=== PATIENT | female | born 1990 | race Caucasian/White ===

== ENCOUNTER 2017-09-08 23:13 | Emergency (ER) | payer OTHER ==
[~2017-09-08] VITALS: Ht 167.6 cm; Wt 54.4 kg
[~2017-09-08 23:13] MED LIST: ADVAIR 100-501 EACH INH; ALBUTEROL2.5 MG/3 M INH/SOL; MEDROL4 M2 PO; PREDNISONE 20MG20 MG PO; PROAIR HFA0.09 MG/Ac PO; PROAIR HFA8.5 GM INH; nebulizer machine
--- NOTE | 2017-09-09 01:17 | ED GENERAL ADULT ---
History of Present Illness General Chief Complaint: Seizure Stated Complaint: SEZUIRE Source: patient Exam Limitations: no limitations Vital Signs & Intake/Output Vital Signs & Intake/Output Vital Signs Date Time Temp Pulse Resp B/P B/P Pulse O2 O2 Flow FiO2 Mean Ox Delivery Rate 09/09 0107 100 Room Air 09/09 0027 97.8 74 18 127/74 96 Allergies Coded Allergies: diphenhydramine (UNKNOWN 09/07/17) Reconcile Medications Albuterol Sulfate (Proair Hfa) 90 MCG HFA.AER.AD 2 PUF INH Q4-6 PRN PRN copugh /wheezing Triage Nurses Notes Reviewed? yes Onset: Abrupt Duration: minute(s): Timing: single episode today Injury Environment: home Severity: moderate Modifying Factors: Improves With: rest. Associated Symptoms: loss of bladder : No Patient currently breastfeeds: No HPI: 27 yo woman h/o seizure disorder, last seizure in 2015, presents with a brief seizure-like episode that lasted approximately 1 minute. Per boyfriend, "She was confused afterwards for a few minutes, but then she was fine.... It took me about 45 minutes to convince her to come to the emergency room." Per boyfriend, she hit her head after she fell. She denies alcohol and drug use. She notes no inciting events. She is presently feeling better. Past History Travel History Traveled to [place] past 21 day No Medical History Any Pertinent Medical History? 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 No Review of Systems Review of Systems Constitutional: Reports: no symptoms. EENTM: Reports: no symptoms. Respiratory: Reports: no symptoms. Cardiovascular: Reports: no symptoms. GI: Reports: no symptoms. Genitourinary: Reports: no symptoms. Musculoskeletal: Reports: no symptoms. Skin: Reports: no symptoms. Neurological/Psychological: Reports: no symptoms. Hematologic/Endocrine: Reports: no symptoms. Immunologic/Allergic: Reports: no symptoms. All Other Systems: Reviewed and Negative Physical Exam Physical Exam General Appearance: well developed/nourished, no apparent distress, alert Head: 3cm hematoma at occiput Eyes: Bilateral: normal appearance, PERRL, EOMI. Ears, Nose, Throat: normal pharynx, normal ENT inspection Neck: normal inspection, supple, full range of motion Respiratory: normal breath sounds, chest non-tender, no respiratory distress, quiet respiration, lungs clear Cardiovascular: regular rate/rhythm Gastrointestinal: normal bowel sounds, soft, non-tender, no organomegaly Back: normal inspection, normal range of motion Extremities: normal inspection, normal capillary refill, normal range of motion, no edema Neurologic/Psych: no motor/sensory deficits, awake, alert, oriented x 3 Skin: intact, normal color, warm/dry Core Measures ACS in differential dx? No CVA/TIA Diagnosis: No Sepsis Present: No Sepsis Focused Exam Completed? No Progress Differential Diagnoses I considered the following diagnoses in my evaluation of the patient: seizure vs pseudoseizure vs other. Plan of Care: Orders Procedure Date/time Status Add-on Test (ER Only) 09/09 0245 Active HUMAN BETA HCG SCREEN 09/09 0105 Complete URINE DRUG SCREEN FOR ER ONLY 09/09 0020 Active EKG 09/09 0020 Active PROLACTIN 09/09 0001 Complete URINALYSIS 09/08 235 Active COMPREHENSIVE METABOLIC PANEL 09/08 235 Complete CBC WITHOUT DIFFERENTIAL 09/08 235 Complete Laboratory Tests 09/09/17 0105: Prolactin 8.1 09/09/17 0105: Anion Gap 15, Estimated GFR > 60, BUN/Creatinine Ratio 18.6, Glucose 121 H, Calcium 9.8, Total Bilirubin 0.8, AST 24, ALT 21, Alkaline Phosphatase 70, Total Protein 7.7, Albumin 4.9, Globulin 2.8, Albumin/Globulin Ratio 1.8, Total Beta HCG NEGATIVE, CBC w Diff NO MAN DIFF REQ, RBC 4.57, MCV 87.1, MCH 29.8, MCHC 34.1, RDW 14.0, MPV 7.6, Gran % 55.9, Lymphocytes % 32.2, Monocytes % 6.2, Eosinophils % 5.6 H, Basophils % 0.1, Absolute Granulocytes 4.2, Absolute Lymphocytes 2.4, Absolute Monocytes 0.5, Absolute Eosinophils 0.4, Absolute Basophils 0 Diagnostic Imaging: Viewed by Me: CT Scan. Discussed w/RAD: CT Scan. Radiology Impression: PATIENT: RAMILA JERRY PRESENT AGE: 27 PATIENT ACCOUNT NO: [id number] : 92 LOCATION: [facility] ORDERING PHYSICIAN: Shyam Cordero MD SERVICE DATE: 09/09/17 EXAM TYPE: CAT - CT HEAD WO IV CONTRAST EXAMINATION: CT HEAD WITHOUT CONTRAST CLINICAL INFORMATION: Seizure. COMPARISON: 05/27/2015 TECHNIQUE: Contiguous axial imaging was performed from the skull base to vertex without intravenous contrast. DLP: 603 mGy-cm. FINDINGS: There is no evidence of acute intracranial hemorrhage or territorial infarction. No abnormal mass effect or midline shift is seen. Rainey to white matter differentiation is well preserved. No extra-axial fluid collections are identified. No hydrocephalus. No significant volume loss. There is no abnormal attenuation within the brain parenchyma. The osseous structures and soft tissues are normal. The mastoid air cells are well aerated. There is moderate opacification of the maxillary sinuses. Mild opacification of the ethmoid air cells. IMPRESSION: No acute intracranial pathology. Moderate opacification of the maxillary sinuses. DICTATED BY: Elvin Carrion MD DATE/ TIME DICTATED:09/09/17326 INFORMATION AND DATA ARCHITECT ANALYST:MARY CARMEN DATE/TIME TRANSCRIBED: 09/09/17326 CONFIDENTIAL, DO NOT COPY WITHOUT APPROPRIATE AUTHORIZATION. < Electronically signed in Other Vendor System> SIGNED BY: Elvin Carrion MD 09/09/17 0332 Initial ED EKG: sinus rhythm, no acute changes. irregular rate Departure Departure Disposition: HOME OR SELF CARE Condition: Stable Clinical Impression Primary Impression: Seizure-like activity Referrals: Patient Has No Primary Care Dr (PCP/Family) Departure Forms: Customer Survey General Discharge Information Comments 09/09/17, 3:54am... pt resting comfortably, benign labs... pt instructed not to drive, swim, use dangerous machinery, climb in high places, and other precautions. pt instructed to follow up with neurologist. close follow up advised. Critical Care Note Critical Care Note Critical Care Time: non-applicable
[2017-09-09 01:44] LABS: ABSOLUTE BASOPHIL COUNT 0 /CUMM (0.0-0.2); ABSOLUTE EOSINOPHIL COUNT 0.4 /CUMM (0.0-0.7); ABSOLUTE GRANULOCYTE CT 4.2 /CUMM (1.4-6.5); ABSOLUTE LYMPH COUNT 2.4 /CUMM (1.2-3.4); ABSOLUTE MONOCYTE COUNT 0.5 /CUMM (0.10-0.60); BASOPHIL % 0.1 % (0.0-2.0); EOSINOPHIL % 5.6 % (0-5); GRANULOCYTE % 55.9 % (42.2-75.2); HEMATOCRIT 39.8 % (37-47); MEAN CORPUSCULAR HGB 29.8 PG (27.0-31.0); MEAN CORPUSCULAR HGB CONC 34.1 G/DL (33.0-37.0); MEAN CORPUSCULAR VOLUME 87.1 FL (81.0-99.0); MEAN PLATELET VOLUME 7.6 FL (7.4-10.4); PLATELET COUNT 230 /CUMM (130-400); RED BLOOD CELL CT 4.57 /CUMM (4.20-5.40); WHITE BLOOD CELL COUNT 7.4 /CUMM (4.8-10.8)
[2017-09-09 03:12] VITALS: BP 121/72
--- NOTE | 2017-09-09 03:32 | CT SCAN REPORT ---
EXAMINATION: CT HEAD WITHOUT CONTRAST CLINICAL INFORMATION: Seizure. COMPARISON: 05/27/2015 TECHNIQUE: Contiguous axial imaging was performed from the skull base to vertex without intravenous contrast. DLP: 603 mGy-cm. FINDINGS: There is no evidence of acute intracranial hemorrhage or territorial infarction. No abnormal mass effect or midline shift is seen. Rainey to white matter differentiation is well preserved. No extra-axial fluid collections are identified. No hydrocephalus. No significant volume loss. There is no abnormal attenuation within the brain parenchyma. The osseous structures and soft tissues are normal. The mastoid air cells are well aerated. There is moderate opacification of the maxillary sinuses. Mild opacification of the ethmoid air cells. IMPRESSION: No acute intracranial pathology. Moderate opacification of the maxillary sinuses.
== END 2017-09-09 04:00 ==
LOC: ERH 23:13
PROVIDERS: Physician Assistant Medical
DX: R56.9 Unspecified convulsions (principal)
CPT/HCPCS: 80307; 81025; 93005; 93010

== ENCOUNTER 2017-12-11 14:59 | Inpatient (IN) | payer OTHER ==
[~2017-12-11] VITALS: Ht 160 cm; Wt 60.3 kg
--- NOTE | 2017-12-11 15:10 | ED AMS/SEIZURE/WEAK/DIZZY ---
History of Present Illness General Chief Complaint: General Adult Stated Complaint: OVERDOSE Source: patient Exam Limitations: no limitations Vital Signs & Intake/Output Vital Signs & Intake/Output Vital Signs Date Time Temp Pulse Resp B/P B/P Pulse O2 O2 Flow FiO2 Mean Ox Delivery Rate 12/12 1611 99 Nasal 4.0L Cannula 12/12 1600 99.0 86 22 124/58 98 Nasal 4.0L Cannula 12/12 1200 96 Nasal 2.0L Cannula 12/12 1145 100 Nasal 40% Cannula 12/12 0920 100 Nasal 60% Cannula 12/12 0830 100 Nasal 70% Cannula 12/12 0800 100 Nasal 60% Cannula 12/12 0800 99.2 87 20 120/78 100 Nasal 60% Cannula 12/12 0400 100 Nasal 70% Cannula 12/12 0028 100 Nasal 70% Cannula 12/12 0000 98 Nasal 70% Cannula 12/12 0000 98.5 97 30 130/72 99 Nasal 70% Cannula 12/11 2247 Nasal 70% Cannula 12/11 2130 97 Nasal 70% Cannula 12/11 2122 99 Nasal 70% Cannula 12/11 2045 98.7 84 32 146/65 100 Nasal Cannula 12/11 1945 99.6 89 26 125/74 98 Nasal Cannula 12/11 1842 86 112/68 92 Nasal Cannula 12/11 1830 94 Nasal 80% Cannula 12/11 1803 98.6 79 31 104/60 90 Nasal 60% Cannula ED Intake and Output 12/12 0000 12/11 1200 Intake Total 1600 Output Total 600 Balance 1000 Intake, IV 1600 Output, Urine 600 Patient 133 lb Weight Weight Bed scale Measurement Method Allergies Coded Allergies: diphenhydramine (UNKNOWN 09/07/17) Reconcile Medications Albuterol Sulfate (Proair Hfa) 90 MCG HFA.AER.AD 2 PUF INH Q4-6 PRN PRN copugh /wheezing Triage Nurses Notes Reviewed? yes HPI: Patient presents for possible overdose. Patient was noted to be lethargic and poorly responsive by family. Patient herself is unable to provide history. Past History Travel History Traveled to [place] past 21 day No Medical History Any Pertinent Medical History? 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 No (UNOBTAINABLE) Review of Systems Review of Systems Constitutional: Reports: see HPI. Comments PT UNABLE TO PROVIDE Physical Exam Physical Exam General Appearance: see below Comments: Gen.: Well-nourished, well-developed, agonal respirations, unresponsive, blackwell color Head: Normocephalic, atraumatic. Eyes: Normal inspection bilaterally Ears: Normal inspection bilaterally Nose: Normal inspection Throat/mouth : Moist mucosa Neck: no goiter Heart: Regular rate and rhythm, no murmurs rubs or gallops Lungs: Agonal respirations, poor respiratory effort, decreased breath sounds bilaterally Chest: Poor chest excursion Abdomen: Nondistended Extremities: equal radial pulses, no spontaneous movements Neurologic: Unable to assess Skin: warm and dry Psychiatric: Unable to assess Core Measures ACS in differential dx? No CVA/TIA Diagnosis No Sepsis Present: No Sepsis Focused Exam Completed? No Progress Differential Diagnosis: drug overdose, alcohol overdose, metabolic abnormality, hypoxia, trauma Plan of Care: Orders Procedure Date/time Status Regular Diet 12/12 B Active TROPONIN LEVEL 12/12 1112 Complete EKG 12/12 1112 Active THERAPIST ORDERS 12/12 0920 Complete OXYGEN SETUP (GEN) 12/12 0920 Complete THERAPIST ORDERS 12/12 0830 Complete OXYGEN SETUP (GEN) 12/12 0830 Complete CBC WITHOUT DIFFERENTIAL 12/12 0600 Complete EKG 12/12 0242 Active THERAPIST ORDERS 12/12 UNK Complete OXYGEN SETUP (GEN) 12/12 UNK Complete ICU LAB BUNDLE 12/12 UNK Complete RT: Evaluation 12/11 2246 Active Wound Care/Dressing 12/11 2201 Complete Weight 12/11 2201 Active VTE Mechanical Prophylaxis 12/11 2201 Active Vital Signs 12/11 2201 Active Turn and Reposition 12/11 2201 Active Drains/Tubes 12/11 2201 Complete Teach/Educate 12/11 2201 Active Skin Integrity Protocol 12/11 2201 Active Skin/Pressure Ulcer Assess (Sk 12/11 2201 Active Precautions 12/11 2201 Active Pain Treatment and Response 12/11 2201 Active Nutritional Intake, Monitor 12/11 2201 Active Isolation 12/11 2201 Active CIWA 12/11 2201 Complete Patient Care Conference 12/11 2201 Active Activity/Ambulation 12/11 2201 Active EKG 12/11 2152 Active OXYGEN SETUP (GEN) 12/11 2129 Complete VRE ACTIVE SURVIELLANCE 12/11 2128 Active ACTIVE SURVEILLANCE NARES 12/11 2128 Active LACTIC ACID 12/11 2026 Complete CULTURE,URINE 12/12 2015 Active BLOOD CULTURE 12/12 2015 Active TRC EVALUATION (GEN) 12/11 1941 Complete Pathway - chart 12/11 1941 Active House Staff 12/11 1941 Active Code Status 12/11 1941 Active Patient Data 12/11 1855 Active ARTERIAL BLOOD GAS (GEN) 12/11 1843 Complete Admit to inpatient 12/11 1823 Active THERAPIST ORDERS 12/11 1821 Complete OXYGEN SETUP (GEN) 12/11 1821 Complete OXYGEN SETUP (GEN) 12/11 1734 Complete OXYGEN SETUP (GEN) 12/11 1713 Complete Intake & Output 12/11 1617 Active THERAPIST ORDERS 12/11 UNK Complete AEROSOL (GEN) 12/11 UNK Complete VTE Mechanical Prophylaxis 12/11 UNK Active [place] Coma Scale 12/11 UNK Active Current Medications Sig/Dana Start time Last Medication Dose Stop Time Status Admin Enoxaparin Sodium 40 MG DAILY 12/12 0900 AC 12/12 (Lovenox) 0831 Albuterol Sulfate 3 ML EVERY 4 HRS/AWAKE 12/12 0800 AC 12/12 (Proventil) 1611 Ampicillin Sodium/ 3,000 MG Q6H 12/11 2100 AC 12/12 Sulbactam Sodium 1511 (Unasyn) Sodium Chloride 100 ML (Normal Saline 0.9%) Ondansetron HCl 4 MG Q6P PRN 12/11 2044 AC (Zofran) Acetaminophen 650 MG Q6P PRN 12/11 1944 AC (Tylenol) Laboratory Tests 12/12/17 1158: Troponin I 0.01 12/12/17 0344: Anion Gap 11, Estimated GFR > 60, Glucose 127 H, Calcium 8.2 L, Phosphorus 3.1 , Magnesium 1.6, Total Bilirubin 0.4, AST 44 H, ALT 49, Albumin 3.2 L, CBC w Diff MAN DIFF ORDERED, RBC 4.20, MCV 87.6, MCH 30.0, MCHC 34.2, RDW 13.1, MPV 7.0 L, Gran % 94.9 H, Lymphocytes % 2.5 L, Monocytes % 2.6, Eosinophils % 0, Basophils % 0, Absolute Granulocytes 14.3 H, Segmented Neutrophils 81 H, Band Neutrophils 13 H, Absolute Lymphocytes 0.4 L, Lymphocytes 3 L, Monocytes 2, Absolute Monocytes 0.4, Absolute Eosinophils 0, Absolute Basophils 0, Metamyelocytes 1, Platelet Estimate ADEQUATE, Normocytic RBCs VERIFIED, Normochromic RBCs VERIFIED 12/11/172144: pH 7.35, pCO2 43, pO2 71 L, HCO3 23, ABG O2 Sat (Measured) 93.0 L, Carboxyhemoglobin 1.2 L, O2 Concentration % 70%, Temperature 98.5, O2 Delivery Method NC, Phlebotomy Draw Site RIGHT RADIAL 12/11/172019: Lactic Acid 0.6 L 12/11/171942: Urine Opiates Screen 372, Methadone Screen < 40, Barbiturate Screen < 60, Ur Phencyclidine Scrn < 6.00, Amphetamines Screen < 100, U Benzodiazepines Scrn < 85, Urine Cocaine Screen > 1000 H, Urine Cannabis Screen 69.80 H Microbiology 12/12 645 URINE ROUT: Urine Culture - RECD 12/11 2134 UPPER RESP: Surveillance Culture - RECD 12/11 2134 GI: Surveillance Culture - RECD 12/11 2037 BLOOD: Blood Culture - RES 12/12 2019 BLOOD: Blood Culture - RES Diagnostic Imaging: Discussed w/RAD: Radiology Read. CXR Impression: no acute abnormality Initial ED EKG: NSR, rate (80), no ST T wave changes Comments: 12/11/2017 3:28:19 PM despite patient's initial substantial improvement with Narcan, she is currently hypoxic with an oxygen saturation in the low 80s with a high flow nasal cannula in place. The respiratory therapists are at bedside arranging for a nebulizer treatment given bronchospasm heard on lung examination. The patient is lethargic but able to sit up and attempts to answer questions. Respiratory effort is adequate at this time. 12/11/2017 3:38:00 PM Rose appears to be increasingly lethargic. Additional Narcan will be administered. Respiratory therapist is attempting to give a nebulizer treatment but is having difficulty given the lack of cooperation of the patient. 12/11/2017 3:58:21 PM with a second dose of Narcan, Rose is awake alert and answering questions. She has no recall of what occurred prior to arrival but admits to heroin abuse. She denies any other co-intoxicants. Departure Departure Disposition: STILL A PATIENT Condition: Stable Clinical Impression Primary Impression: Heroin overdose Referrals: Patient Has No Primary Care Dr (PCP/Family) Departure Forms: Customer Survey General Discharge Information Admission Note Spoke With: Leonardo Croft MD Documentation of Exam: Documentation of any treatments & extenuating circumstances including Concerns Regarding Discharge (functional status, medication knowledge or non-compliance, living conditions, etc.) that warrant an admission rather than observation: Patient presented after a near fatal heroin overdose. She currently requires continuous IV infusion of Narcan to maintain an appropriate level of alertness and oxygen saturations. Even with this this patient is requiring relatively high flow oxygen to maintain oxygen saturations. She cannot be safely treated as an outpatient at this point attempted outpatient treatment would almost certainly be fatal. The patient requires ICU level care with a continuous infusion of Narcan" clinical monitoring of vital signs and oxygen saturation along with clinical condition. Patient should be evaluated by inpatient psychiatry for the possibility of an intentional overdose. As this patient metabolizes the her when and other intoxicants in her system her oxygen and Narcan should be weaned as tolerated clinically. I believe counseling to address this patient's opiate abuse should be initiated while in the hospital. I feel this patient will require a multiple day hospitalization. Critical Care Note Critical Care Note Critical Care Time: 30-74 min
--- NOTE | 2017-12-11 15:32 | RADIOLOGY REPORT ---
EXAMINATION: XR PORTABLE CHEST CLINICAL INFORMATION: Overdose COMPARISON: 11/03/2013 TECHNIQUE: Portable frontal view of the chest was obtained. FINDINGS: No significant abnormality is noted involving the heart, lungs, mediastinum, bony thorax or soft tissues. IMPRESSION: No acute pulmonary disease. No significant change from prior study.
[2017-12-11 17:06] LABS: ABSOLUTE BASOPHIL COUNT 0 /CUMM (0.0-0.2); ABSOLUTE EOSINOPHIL COUNT 0.1 /CUMM (0.0-0.7); ABSOLUTE GRANULOCYTE CT 15.3 /CUMM (1.4-6.5); ABSOLUTE LYMPH COUNT 0.7 /CUMM (1.2-3.4); ABSOLUTE MONOCYTE COUNT 0.3 /CUMM (0.10-0.60); BASOPHIL % 0.2 % (0.0-2.0); EOSINOPHIL % 0.6 % (0-5); HEMATOCRIT 39.6 % (37-47); MEAN CORPUSCULAR HGB 30.4 PG (27.0-31.0); MEAN CORPUSCULAR HGB CONC 34.3 G/DL (33.0-37.0); MEAN CORPUSCULAR VOLUME 88.6 FL (81.0-99.0); MEAN PLATELET VOLUME 6.8 FL (7.4-10.4); PLATELET COUNT 215 /CUMM (130-400); RBC DISTRIBUTION WIDTH 13.1 % (11.5-14.5); RED BLOOD CELL CT 4.47 /CUMM (4.20-5.40); WHITE BLOOD CELL COUNT 16.4 /CUMM (4.8-10.8)
--- NOTE | 2017-12-11 19:01 | History & Physical ---
[facility] 12/11/17 334: General Information and HPI MD Statement: I have seen and personally examined RAMILA JERRY and documented this H&P. The patient is a 27 year old F who presented with a patient stated chief complaint of [unresponsiveness]. Source of Information: patient, ER data Exam Limitations: unable to give history, clinical condition History of Present Illness: 27 yo F with PMH of asthma was brought to the ED by a friend for unresponsiveness. History is limited and obtained from ER data. The patient was reportedly found to be unresponsive and diaphoretic earlier in the car. On arrival to the ED, there was vomitus noticed on her clothes. She was given a dose of Narcan to which she responded but became unresponsive again. She received 2 more doses of Narcan after which she was subsequently started on a Narcan drip. The patient was noticed to cough bloody/frothy sputum in the ER. The patient is arousable with deep sternal rub but has a waxing and waning course of consciousness. During a brief period where she was awake, she reports to have snorted 3 bags of heroin earlier today. She has been using 2 bags of heroin every day for the past year. Denies IV drug use. Occasional use of alcohol. Limited ROS was obtained; she does not complain of any pain/discomfort or offers any complaints. The patient was last seen twice in the ER on September 07 and of this year where she presented once for asthma and for a ? episode of seizure. 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 EENTM: Reports: no symptoms. Cardiovascular: Denies: chest pain. Respiratory: Reports: no symptoms. GI: Reports: no symptoms. Genitourinary: Reports: no symptoms. Musculoskeletal: Reports: no symptoms. Skin: Reports: no symptoms. Neurological/Psychological: Reports: no symptoms. Exam & Diagnostic Data Last 24 Hrs of Vital Signs/I&O Vital Signs Date Time Temp Pulse Resp B/P B/P Pulse O2 O2 Flow FiO2 Mean Ox Delivery Rate 12/11 1803 98.6 79 31 104/60 90 Nasal 60% Cannula 12/11 1747 92 Nasal 100% Cannula 12/11 1716 96.8 82 34 113/63 98 Nasal 60% Cannula 12/11 1610 99 Nasal 80% Cannula 12/11 1559 96.6 12/11 1553 94.9 95 18 127/70 98 Nasal 100% Cannula 12/11 1520 94 Nasal 100% Cannula 12/11 1514 98.6 99 30 154/106 74 Nasal 6.0L Cannula Intake & Output 12/11 1600 12/11 0800 12/11 0000 Intake Total Output Total Balance Patient 110 lb Weight Weight Estimated Measurement Method Physical Exam General Appearance Cooperative, Mild Distress, lethargic, difficult to arouse even with deep sternal rub Skin No Rashes, No Breakdown Skin Temp/Moisture Exam: Warm/Dry Sepsis Skin Exam (color): Normal for Ethnicity HEENT Atraumatic, PERRLA, Mucous Membr. moist/pink Cardiovascular Normal S1, Normal S2, No Murmurs Lungs diffuse rhonchi Abdomen Soft, No Tenderness Neurological Normal Speech, Strength at 5/5 X4 Ext Extremities No Edema, Normal Pulses Last 24 Hrs of Labs/Mateo: Laboratory Tests 12/11/17 1943: Methadone Screen Pending, Barbiturate Screen Pending, Ur Phencyclidine Scrn Pending, Amphetamines Screen Pending, U Benzodiazepines Scrn Pending, Urine Cocaine Screen Pending, Urine Cannabis Screen Pending 12/11/17 1644: Anion Gap 10, Estimated GFR > 60, BUN/Creatinine Ratio 12.5, Glucose 120 H, Calcium 8.1 L, Total Bilirubin 0.4, AST 89 H, ALT 53 H, Alkaline Phosphatase 52, Troponin I 0.02, Total Protein 5.9 L, Albumin 3.4 L, Globulin 2.5, Albumin /Globulin Ratio 1.4, Total Beta HCG NEGATIVE, CBC w Diff MAN DIFF ORDERED, RBC 4.47, MCV 88.6, MCH 30.4, MCHC 34.3, RDW 13.1, MPV 6.8 L, Gran % 93.0 H, Lymphocytes % 4.3 L, Monocytes % 1.9, Eosinophils % 0.6, Basophils % 0.2, Absolute Granulocytes 15.3 H, Segmented Neutrophils Pending, Absolute Lymphocytes 0.7 L, Absolute Monocytes 0.3, Absolute Eosinophils 0.1, Absolute Basophils 0, Serum Alcohol < 10.0 12/11/17 1506: Total Beta HCG Cancelled Microbiology 12/12 2015 URINE ROUT: Urine Culture - ORD 12/12 2015 BLOOD: Blood Culture - ORD 12/12 2015 BLOOD: Blood Culture - ORD Assessment/Plan Assessment: 27 yo F with PMH of asthma is brought to the ED after being found unresponsive. Likely etiology at this time appears to be heroin overdose. On arrival to the ED she had a temp of 98.6, Pulse 99, RR 30 and BP of 154/106. Labs show white count of 16.4 with 93% granulocytes, H&H of 13.6/39, Platelets of 215. Serum chemistries show Na 137, K 4.4, BUN 10, Cr 0.8, AST 89, ALT 53, serum alcohol < 10. In the ED she received IV Narcan 0.4mg x 3, 1L of NS, nebs with albuterol and started on IV Narcan drip. Assessment: 1. Acute Heroin Overdose 2. Aspiration Pneumonia 3. Cocaine Abuse 4. History of Asthma Plan: * Admit patient to ICU. * Continue Narcan drip for now. Will attempt to wean off once her level of consciousness improves. * TRC/nebs as needed. She is currently on 60% high flow NC and received an albuterol treatment in the ER. * Obtain blood and urine culture * Utox - positive for cocaine and cannabis. * Check Lactic Acid * Start IV Unasyn 3g q6 to cover for possible aspiration pneumonia. She does have a white count but this could be reactive. * Await CT Chest results. * IV hydration with D5-1/2 NS @75ml/hr * IV Zofran prn for nausea * Diet: NPO for now * DVT Prophylaxis: SC Lovenox * Code Status: Full Code. This needs to be confirmed when the patient is more awake/alert. Her only contact listed in the chart is a male friend who was contacted but his phone is off. As Ranked By This Provider Problem List: 1. Overdose Core Measures/Misc (02/15) Acute Coronary Syndrome ACS Diagnosis: No Congestive Heart Failure Congestive Heart Failure Diagnosis No Cerebrovascular Accident CVA/TIA Diagnosis: No VTE (View Protocol) VTE Risk Factors Age>40 No Mechanical VTE Prophylaxis d/t N/A MechProphylax Ordered No VTE Pharm Prophylaxis d/t NA PharmProphylax ordered Sepsis (View protocol) Sepsis Present: No If YES complete Sepsis Event Note If YES complete Sepsis Event Note Leonardo Croft MD 12/12/17 0014: General Information and HPI Statement: I have seen and personally examined RAMILA JERRY and documented this H&P. The patient is a 27 year old F who presented with a patient stated chief complaint of [unresponsiveness]. Source of Information: ER data Exam Limitations: not alert/orientated, confusion Allergies/Medications Allergies: Coded Allergies: diphenhydramine (UNKNOWN 09/07/17) Home Med list Albuterol Sulfate (Proair Hfa) 90 MCG HFA.AER.AD 2 PUF INH Q4-6 PRN PRN copugh /wheezing Past History Medical History Neurological: seizure Respiratory: asthma Past Family/Social History Psychosocial History Smoking Status: Never Smoked ETOH Use: occasional use Illicit Drug Use: cocaine, heroin, marijuana Employment History Past Employment History Unobtainable at this time Review of Systems Review of Systems Constitutional: Reports: see HPI. Exam & Diagnostic Data Last 24 Hrs of Vital Signs/I&O Vital Signs Date Time Temp Pulse Resp B/P B/P Pulse O2 O2 Flow FiO2 Mean Ox Delivery Rate 12/12 0000 98.5 97 30 130/72 99 Nasal 70% Cannula 12/11 2246 Nasal 70% Cannula 12/11 2129 97 Nasal 70% Cannula 12/11 2121 99 Nasal 70% Cannula 12/11 2044 98.7 84 32 146/65 100 Nasal Cannula 12/11 1945 99.6 89 26 125/74 98 Nasal Cannula 12/11 1842 86 112/68 92 Nasal Cannula 12/11 1830 94 Nasal 80% Cannula 12/11 1803 98.6 79 31 104/60 90 Nasal 60% Cannula 12/11 1747 92 Nasal 100% Cannula 12/11 1716 96.8 82 34 113/63 98 Nasal 60% Cannula 12/11 1642 76 108/55 92 Nasal Cannula 12/11 1610 99 Nasal 80% Cannula 12/11 1559 96.6 12/11 1553 94.9 95 18 127/70 98 Nasal 100% Cannula 12/11 1520 94 Nasal 100% Cannula 12/11 1514 98.6 99 30 154/106 74 Nasal 6.0L Cannula Intake & Output 12/12 0800 12/12 0000 12/11 1600 Intake Total 1600 Output Total 600 Balance 1000 Intake, IV 1600 Output, Urine 600 Patient 133 lb 110 lb Weight Weight Bed scale Estimated Measurement Method Physical Exam General Appearance Moderate Distress, lethargic, difficult to arouse even with deep sternal rub HEENT Atraumatic, PERRLA, EOMI Neck Supple Cardiovascular Regular Rate, Normal S1, Normal S2, No Murmurs Lungs diffuse rhonchi Abdomen Soft, No Tenderness Last 24 Hrs of Labs/Mateo: Laboratory Tests 12/11/175: pH 7.35, pCO2 43, pO2 71 L, HCO3 23, ABG O2 Sat (Measured) 93.0 L, Carboxyhemoglobin 1.2 L, O2 Concentration % 70%, Temperature 98.5, O2 Delivery Method NC, Phlebotomy Draw Site RIGHT RADIAL 12/11/172019: Lactic Acid 0.6 L 12/11/171942: Urine Opiates Screen 372, Methadone Screen < 40, Barbiturate Screen < 60, Ur Phencyclidine Scrn < 6.00, Amphetamines Screen < 100, U Benzodiazepines Scrn < 85, Urine Cocaine Screen > 1000 H, Urine Cannabis Screen 69.80 H 12/11/17 1644: Anion Gap 10, Estimated GFR > 60, BUN/Creatinine Ratio 12.5, Glucose 120 H, Calcium 8.1 L, Total Bilirubin 0.4, AST 89 H, ALT 53 H, Alkaline Phosphatase 52, Troponin I 0.02, Total Protein 5.9 L, Albumin 3.4 L, Globulin 2.5, Albumin /Globulin Ratio 1.4, Total Beta HCG NEGATIVE, CBC w Diff MAN DIFF ORDERED, RBC 4.47, MCV 88.6, MCH 30.4, MCHC 34.3, RDW 13.1, MPV 6.8 L, Gran % 93.0 H, Lymphocytes % 4.3 L, Monocytes % 1.9, Eosinophils % 0.6, Basophils % 0.2, Absolute Granulocytes 15.3 H, Segmented Neutrophils 90 H, Band Neutrophils 5, Absolute Lymphocytes 0.7 L, Lymphocytes 2 L, Monocytes 2, Absolute Monocytes 0.3, Eosinophils 1, Absolute Eosinophils 0.1, Absolute Basophils 0, Platelet Estimate VERIFIED BY SMEAR, Normocytic RBCs VERIFIED, Normochromic RBCs VERIFIED , Fld Total RBCs Counted 100, Serum Alcohol < 10.0 12/11/17 1506: Total Beta HCG Cancelled Microbiology 12/11 2134 UPPER RESP: Surveillance Culture - RECD 12/11 2134 GI: Surveillance Culture - RECD 12/11 2037 BLOOD: Blood Culture - RECD 12/12 2019 BLOOD: Blood Culture - RECD 12/12 2015 URINE ROUT: Urine Culture - ORD Core Measures/Misc (02/15) Sepsis (View protocol) If YES complete Sepsis Event Note If YES complete Sepsis Event Note Attending MD Review Statement Attending Statement Attending MD Statement: examined this patient, discuss w/resident/PA/LAP MAKER, agreed w/resident/PA/LAP MAKER Attending Assessment/Plan: This patient is a 27-year-old white female with a significant past medical history for asthma. She presented to the emergency department unresponsive. Apparently she had episodes of vomiting prior to arrival and in the ED. The patient quickly responded to Narcan however it was not sustained. While in the emergency department the Narcan was repeated 2 more times without sustained effect she was then started on a Narcan drip. In between symptoms of arousal and lethargy the patient needed to be bagged a few times and continued to vomit blood tinged vomitus. During a brief period where she was awake, she reports to have snorted 3 bags of heroin earlier today. Urine tox is also positive for cocaine and marijuana. She has been using 2 bags of heroin every day for the past year. She is being admitted for heroin and cocaine overdose. She is afebrile with an elevated WBC count. CT scan demonstrates multiple infiltrates. Well monitor cardiac function and treat for aspiration pneumonia. Patient will remain on the Narcan drip until she is awake alert off the medication.
--- NOTE | 2017-12-11 21:47 | CT SCAN REPORT ---
EXAMINATION: CT CHEST WITHOUT CONTRAST CLINICAL INFORMATION: Dyspnea. Low O2 sat status post heroin overdose. COMPARISON: Chest radiograph from earlier the same day ( 12/11/2017). TECHNIQUE: Multidetector volumetric CT imaging of the chest was done. Axial MIP volume rendering provided. Sagittal and coronal reformatted images were obtained. DLP: 197 mGy-cm FINDINGS: RECREATION ENGINEER: Hazy perihilar airspace opacities of increased as compared to the radiograph from earlier the same day. LUNGS: Patchy consolidative and groundglass opacities are present in a perihilar distribution, more pronounced anteriorly within the upper lobes. Smaller foci are present in the lower lobes A few interspersed areas of interlobular septal thickening are present around these opacities. There is no superimposed cavitation. Examination is slightly limited by respiratory motion. Central airways are clear, though assessment is slightly limited by the respiratory motion as mentioned before. No pleural effusion. MEDIASTINUM: The mediastinum is normal. PLEURA: There is no pleural effusion. No pleural mass or thickening. AXILLA: No lymphadenopathy. UPPER ABDOMEN: Unremarkable. OSSEOUS STRUCTURES: Unremarkable. IMPRESSION: Noncardiogenic pulmonary edema, primarily involving the anterior upper lobes.
[2017-12-12] VITALS: BP 130/72
[2017-12-12 04:22] LABS: ABSOLUTE BASOPHIL COUNT 0 /CUMM (0.0-0.2); ABSOLUTE EOSINOPHIL COUNT 0 /CUMM (0.0-0.7); ABSOLUTE GRANULOCYTE CT 14.3 /CUMM (1.4-6.5); ABSOLUTE LYMPH COUNT 0.4 /CUMM (1.2-3.4); ABSOLUTE MONOCYTE COUNT 0.4 /CUMM (0.10-0.60); BASOPHIL % 0 % (0.0-2.0); EOSINOPHIL % 0 % (0-5); GRANULOCYTE % 94.9 % (42.2-75.2); HEMATOCRIT 36.8 % (37-47); MEAN CORPUSCULAR HGB CONC 34.2 G/DL (33.0-37.0); MEAN CORPUSCULAR VOLUME 87.6 FL (81.0-99.0); PLATELET COUNT 148 /CUMM (130-400); RBC DISTRIBUTION WIDTH 13.1 % (11.5-14.5); WHITE BLOOD CELL COUNT 15.1 /CUMM (4.8-10.8)
--- NOTE | 2017-12-12 07:38 | Admission Certification ---
Admission Certification Certification Statement - As attending physician, I certify that at the time of - admission, based on clinical presentation, severity of - symptoms, need for further diagnostic testing and - therapeutic interventions, and risk of adverse outcomes - without in-hospital treatment, in my clinical assessment, - this patient requires an acute hospital stay for a minimum - of two nights or longer. I have also considered psychsocial - factors such as support system, advanced age, financial - issues, cognitive issues, and failed out-patient treatments, - past re-admission history, safety of patient, and lack of - compliance as applicable. Specific rationale supporting this admission is: Drug overdose, severe aspiration pneumonitis versus pneumonia, needs Narcan drip , high flow oxygen and ICU monitoring and treatment.
[2017-12-12 08:00] VITALS: BP 120/78
--- NOTE | 2017-12-12 08:24 | Cons- CRCU ---
Олег EmyLast 12/12/17 0823: General Information and HPI Consulting Request Date of Consult: 12/12/17 Source of Information: patient, friend History of Present Illness: Ms. Quintero is a 27 y/o F with PMH of asthma that was brought to the ED after she was found unresponsive. On arrival to the ED, pt was minimally responsive. She responded to an initial dose of narcan but quickly became unresponsive again. Two doses of narcan were administered before she was put on a narcan drip. Pt has no recollection of the events preceding her overdose, though states she's a frequent heroin user (2 bags/day) for the past year. She denies any use of IV drugs. Vomitus was noted on her clothing upon arrival to the ED, as well as bloody cough. Urine tox was positive for cocaine, opioid and cannabis. She was admitted to the ICU for close monitoring due to acute opioid overdose. Allergies/Medications Allergies: Coded Allergies: diphenhydramine (UNKNOWN 09/07/17) Home Med List: Albuterol Sulfate (Proair Hfa) 90 MCG HFA.AER.AD 2 PUF INH Q4-6 PRN PRN copugh /wheezing Review of Systems Review of Systems Constitutional: Reports: weakness. EENTM: Reports: no symptoms. Cardiovascular: Reports: no symptoms. Respiratory: Reports: no symptoms. GI: Reports: no symptoms. Genitourinary: Reports: no symptoms. Musculoskeletal: Reports: no symptoms. Past History Travel History Traveled to [place] past 21 day No Medical History Blood Transfusion Hx: No Neurological: seizure EENT: NONE Cardiovascular: NONE Respiratory: asthma Gastrointestinal: constipation Hepatic: NONE Renal: NONE Musculoskeletal: NONE Psychiatric: NONE Endocrine: NONE Blood Disorders: NONE Cancer(s): NONE FLOWER ARRANGER/Reproductive: NONE Surgical History Surgical History: non-contributory Psychosocial History Where Do You Live? Home Smoking Status: Never Smoked ETOH Use: occasional use Illicit Drug Use: cocaine, heroin, marijuana Exam & Diagnostic Data Last 24 Hrs of Vital Signs/I&O Laboratory Tests 12/12/17 1158: Troponin I 0.01 12/12/17 0344: Anion Gap 11, Estimated GFR > 60, Glucose 127 H, Calcium 8.2 L, Phosphorus 3.1 , Magnesium 1.6, Total Bilirubin 0.4, AST 44 H, ALT 49, Albumin 3.2 L, CBC w Diff MAN DIFF ORDERED, RBC 4.20, MCV 87.6, MCH 30.0, MCHC 34.2, RDW 13.1, MPV 7.0 L, Gran % 94.9 H, Lymphocytes % 2.5 L, Monocytes % 2.6, Eosinophils % 0, Basophils % 0, Absolute Granulocytes 14.3 H, Segmented Neutrophils 81 H, Band Neutrophils 13 H, Absolute Lymphocytes 0.4 L, Lymphocytes 3 L, Monocytes 2, Absolute Monocytes 0.4, Absolute Eosinophils 0, Absolute Basophils 0, Metamyelocytes 1, Platelet Estimate ADEQUATE, Normocytic RBCs VERIFIED, Normochromic RBCs VERIFIED 12/11/17 2145: pH 7.35, pCO2 43, pO2 71 L, HCO3 23, ABG O2 Sat (Measured) 93.0 L, Carboxyhemoglobin 1.2 L, O2 Concentration % 70%, Temperature 98.5, O2 Delivery Method NC, Phlebotomy Draw Site RIGHT RADIAL 12/11/172019: Lactic Acid 0.6 L 12/11/17 1943: Urine Opiates Screen 372, Methadone Screen < 40, Barbiturate Screen < 60, Ur Phencyclidine Scrn < 6.00, Amphetamines Screen < 100, U Benzodiazepines Scrn < 85, Urine Cocaine Screen > 1000 H, Urine Cannabis Screen 69.80 H 12/11/17 1644: Anion Gap 10, Estimated GFR > 60, BUN/Creatinine Ratio 12.5, Glucose 120 H, Calcium 8.1 L, Total Bilirubin 0.4, AST 89 H, ALT 53 H, Alkaline Phosphatase 52, Troponin I 0.02, Total Protein 5.9 L, Albumin 3.4 L, Globulin 2.5, Albumin /Globulin Ratio 1.4, Total Beta HCG NEGATIVE, CBC w Diff MAN DIFF ORDERED, RBC 4.47, MCV 88.6, MCH 30.4, MCHC 34.3, RDW 13.1, MPV 6.8 L, Gran % 93.0 H, Lymphocytes % 4.3 L, Monocytes % 1.9, Eosinophils % 0.6, Basophils % 0.2, Absolute Granulocytes 15.3 H, Segmented Neutrophils 90 H, Band Neutrophils 5, Absolute Lymphocytes 0.7 L, Lymphocytes 2 L, Monocytes 2, Absolute Monocytes 0.3, Eosinophils 1, Absolute Eosinophils 0.1, Absolute Basophils 0, Platelet Estimate VERIFIED BY SMEAR, Normocytic RBCs VERIFIED, Normochromic RBCs VERIFIED , Fld Total RBCs Counted 100, Serum Alcohol < 10.0 Vital Signs Date Time Temp Pulse Resp B/P B/P Pulse O2 O2 Flow FiO2 Mean Ox Delivery Rate 12/12 1200 96 Nasal 2.0L Cannula 12/12 1145 100 Nasal 40% Cannula 12/12 0920 100 Nasal 60% Cannula 12/12 0830 100 Nasal 70% Cannula 12/12 0800 100 Nasal 60% Cannula 12/12 0800 99.2 87 20 120/78 100 Nasal 60% Cannula 12/12 0400 100 Nasal 70% Cannula 12/12 0028 100 Nasal 70% Cannula 12/12 0000 98 Nasal 70% Cannula 12/12 0000 98.5 97 30 130/72 99 Nasal 70% Cannula 12/11 2247 Nasal 70% Cannula 12/11 2130 97 Nasal 70% Cannula 12/112 99 Nasal 70% Cannula 12/115 98.7 84 32 146/65 100 Nasal Cannula 12/11 1945 99.6 89 26 125/74 98 Nasal Cannula 12/11 1842 86 112/68 92 Nasal Cannula 12/11 1830 94 Nasal 80% Cannula 12/11 1803 98.6 79 31 104/60 90 Nasal 60% Cannula 12/11 1747 92 Nasal 100% Cannula 12/11 1716 96.8 82 34 113/63 98 Nasal 60% Cannula 12/11 1642 76 108/55 92 Nasal Cannula 12/11 1610 99 Nasal 80% Cannula 12/11 1559 96.6 12/11 1553 94.9 95 18 127/70 98 Nasal 100% Cannula 12/11 1520 94 Nasal 100% Cannula 12/11 1514 98.6 99 30 154/106 74 Nasal 6.0L Cannula Intake & Output 12/12 1600 12/12 0800 12/12 0000 Intake Total 2953 1600 Output Total 2500 600 Balance 453 1000 Intake, IV 2233 1600 Intake, Oral 720 Output, Urine 2500 600 Patient 133 lb 133 lb Weight Weight Bed scale Measurement Method Physical Exam General Appearance: thin, very drowsy - though responds to being called by her name Head: atraumatic, normal appearance Eyes: Bilateral: normal appearance, EOMI. Neck: normal inspection, supple Respiratory: no respiratory distress, scattered rhonchi R>L Cardiovascular: regular rate/rhythm Gastrointestinal: normal bowel sounds, soft, non-tender, no organomegaly Neurologic/Psych: no motor/sensory deficits, oriented x 3, depressed affect, Pt is drowsy - awake at moments and willing to talk about what she remembers. No focal neurological deficits observed. Cranial Nerves: normal hearing, normal speech Skin: intact, normal color Diagnostic Data CXR Results 12/11 EXAMINATION: XR PORTABLE CHEST CLINICAL INFORMATION: Overdose COMPARISON: 11/03/2013 TECHNIQUE: Portable frontal view of the chest was obtained. FINDINGS: No significant abnormality is noted involving the heart, lungs, mediastinum, bony thorax or soft tissues. IMPRESSION: No acute pulmonary disease. No significant change from prior study. Other Results 12/11 COMPARISON: Chest radiograph from earlier the same day ( 12/11/2017). TECHNIQUE: Multidetector volumetric CT imaging of the chest was done. Axial MIP volume rendering provided. Sagittal and coronal reformatted images were obtained. DLP: 197 mGy-cm FINDINGS: DIRECTOR OF CASINO MARKETING: Hazy perihilar airspace opacities of increased as compared to the radiograph from earlier the same day. LUNGS: Patchy consolidative and groundglass opacities are present in a perihilar distribution, more pronounced anteriorly within the upper lobes. Smaller foci are present in the lower lobes A few interspersed areas of interlobular septal thickening are present around these opacities. There is no superimposed cavitation. Examination is slightly limited by respiratory motion. Central airways are clear, though assessment is slightly limited by the respiratory motion as mentioned before. No pleural effusion. MEDIASTINUM: The mediastinum is normal. PLEURA: There is no pleural effusion. No pleural mass or thickening. AXILLA: No lymphadenopathy. UPPER ABDOMEN: Unremarkable. OSSEOUS STRUCTURES: Unremarkable. IMPRESSION: Noncardiogenic pulmonary edema, primarily involving the anterior upper lobes. Assessment/Plan CRCU Impression/Plan: Ms. Quintero is a 27 y/o F with PMH of asthma that was brought to the ED after she was found unresponsive. On arrival to the ED, pt was minimally responsive. She responded to an initial dose of narcan but quickly became unresponsive again. Two doses of narcan were administered before she was put on a narcan drip. Pt has no recollection of the events preceding her overdose, though states she's a frequent heroin user (2 bags/day) for the past year. She denies any use of IV drugs. Vomitus was noted on her clothing upon arrival to the ED, as well as bloody cough. She was admitted to the ICU for close monitoring due to acute opioid overdose. ASSESSMENT AND PLAN #Acute Opiod Overdose/Multisubstance Abuse #Aspiration PNA Acute Opioid Overdose/Multisubstance Abuse Pt was brought in minimally responsive after 3 doses of narcan 0.4 mg. Her urine tox was positive for opioid, cannabis and cocaine. She was put on a narcan drip overnight. In the AM, patient was still only responding to noxious stimuli. By mid morning, she was responding to name calling with no acute complains; with improving state of consciousness, narcan rip was dc'd. She is now AAOX3, though with no recollection of what happened; she states the overdose was not intentional and denies suicidal ideation. She was weaned off high flow oxygen, now with 98% o2 sat on 2L nasal cannula. litigation services manager and psychiatry will be consulted. -Off narcan drip -Off high flow O2; now on 2L NC, 98% sat -1:1 Sitter -Social Service consult -Psych Consult Aspiration PNA Likely complication from her opioid overdose - pt was minimally responsive with vomitus on her clothes on arrival. History is highly suspicious for aspiration PNA. CXR and chest CT were obtained and showed multiple infiltrates. Unasyn 3g q6 was started while culture reports are pending. She has leukocytosis with 13% band indicating though has been afebrile. Likely due to initial inflammatory burden involved in early stage aspiration pneumonitis. -Unasyn 3g q6 -f/u cultures -f/u CBC -Continue D5W @ 75 cc/hr until adequate PO intake FULL CODE DVT PPX: Enoxaparin 40 mg sq daily; ALPS Regular Diet Problem List: 1. Overdose Consult Acknowledgment - Thank you for your consult request. Roma Viramontes MD 12/12/17 0944: General Information and HPI Consulting Request Date of Consult: 12/12/17 Requested By: Dr. Croft Reason for Consult: Drug overdose, see ICU management. Source of Information: patient, old records, friend Exam Limitations: no limitations Allergies/Medications Current Medications: Current Medications Sig/Dana Start time Last Medication Dose Route Stop Time Status Admin Acetaminophen 650 MG Q6P PRN 12/11 1945 AC PO Albuterol Sulfate 3 ML EVERY 4 HRS/AWAKE 12/12 0800 AC 12/12 INH 0828 Albuterol Sulfate 3 ML ONCE ONE 12/11 1845 DC 07 INH 12/11 1846 1830 Albuterol Sulfate 3 ML ONCE ONE 12/11 1545 DC 07 INH 12/11 1546 1548 Ampicillin Sodium/ 3,000 MG Q6H 12/11 2100 AC 12/12 Sulbactam Sodium IV 0829 Sodium Chloride 100 ML Ampicillin Sodium/ 0 .STK-MED ONE 12/11 2041 DC Sulbactam Sodium .ROUTE Dextrose/Sodium 1,000 ML Q13H 12/11 2015 AC 12/11 Chloride IV 214 Enoxaparin Sodium 40 MG DAILY 12/12 0900 AC 12/12 SC 0831 Magnesium Sulfate 1 GM Q2H 12/12 0500 DC 12/12 Dextrose/Water 100 ML IV 12/12 0859 0555 Naloxone HCl 4 MG Q10H 12/12 0345 AC 12/12 Sodium Chloride 1,000 ML IV 0413 Naloxone HCl 4 MG Q24H 12/11 1715 DC 12/11 Sodium Chloride 1,000 ML IV 12/12 0344 1743 Naloxone HCl 0 .STK-MED ONE 12/11 1700 DC .ROUTE Naloxone HCl 0.4 MG ONCE ONE 12/11 1545 DC 12/11 IV 12/11 1546 1703 Naloxone HCl 0 .STK-MED ONE 12/11 1539 DC .ROUTE Naloxone HCl 0.4 MG ONCE ONE 12/11 1515 DC 07 IV 12/11 1516 1540 Naloxone HCl 0.4 MG ONCE ONE 12/11 1515 DC 07 IV 12/11 1516 1505 Ondansetron HCl 4 MG Q6P PRN 12/11 2045 AC IV Ondansetron HCl 4 MG ONCE ONE 12/11 1515 DC 07 IV 12/11 1516 1505 Ondansetron HCl 4 MG ONCE ONE 12/11 1515 DC IV 12/11 1516 Sodium Chloride 1,000 ML BOLUS ONE 12/11 1515 DC 12/11 IV 12/11 1614 1540 Exam & Diagnostic Data Last 24 Hrs of Vital Signs/I&O Vital Signs Date Time Temp Pulse Resp B/P B/P Pulse O2 O2 Flow FiO2 Mean Ox Delivery Rate 12/12 0920 100 Nasal 60% Cannula 12/12 0830 100 Nasal 70% Cannula 12/12 0400 100 Nasal 70% Cannula 12/12 0028 100 Nasal 70% Cannula 12/12 0000 98 Nasal 70% Cannula 12/12 0000 98.5 97 30 130/72 99 Nasal 70% Cannula 12/117 Nasal 70% Cannula /2129 97 Nasal 70% Cannula /2121 99 Nasal 70% Cannula 07/13 2044 98.7 84 32 146/65 100 Nasal Cannula /13 1945 99.6 89 26 125/74 98 Nasal Cannula / 1842 86 112/68 92 Nasal Cannula / 1830 94 Nasal 80% Cannula /13 1803 98.6 79 31 104/60 90 Nasal 60% Cannula /13 1747 92 Nasal 100% Cannula /13 1716 96.8 82 34 113/63 98 Nasal 60% Cannula / 1642 76 108/55 92 Nasal Cannula / 1610 99 Nasal 80% Cannula / 1559 96.6 12/11 1553 94.9 95 18 127/70 98 Nasal 100% Cannula / 1520 94 Nasal 100% Cannula / 1514 98.6 99 30 154/106 74 Nasal 6.0L Cannula Intake & Output 12/12 1600 12/12 0800 12/12 0000 Intake Total 2953 1600 Output Total 2500 600 Balance 453 1000 Intake, IV 2233 1600 Intake, Oral 720 Output, Urine 2500 600 Patient 133 lb 133 lb Weight Weight Bed scale Measurement Method Last 48 Hrs of Labs/Mateo: Laboratory Tests 12/12/17 0344: Anion Gap 11, Estimated GFR > 60, Glucose 127 H, Calcium 8.2 L, Phosphorus 3.1 , Magnesium 1.6, Total Bilirubin 0.4, AST 44 H, ALT 49, Albumin 3.2 L, CBC w Diff MAN DIFF ORDERED, RBC 4.20, MCV 87.6, MCH 30.0, MCHC 34.2, RDW 13.1, MPV 7.0 L, Gran % 94.9 H, Lymphocytes % 2.5 L, Monocytes % 2.6, Eosinophils % 0, Basophils % 0, Absolute Granulocytes 14.3 H, Segmented Neutrophils 81 H, Band Neutrophils 13 H, Absolute Lymphocytes 0.4 L, Lymphocytes 3 L, Monocytes 2, Absolute Monocytes 0.4, Absolute Eosinophils 0, Absolute Basophils 0, Metamyelocytes 1, Platelet Estimate ADEQUATE, Normocytic RBCs VERIFIED, Normochromic RBCs VERIFIED 12/11/172144: pH 7.35, pCO2 43, pO2 71 L, HCO3 23, ABG O2 Sat (Measured) 93.0 L, Carboxyhemoglobin 1.2 L, O2 Concentration % 70%, Temperature 98.5, O2 Delivery Method NC, Phlebotomy Draw Site RIGHT RADIAL 12/11/172019: Lactic Acid 0.6 L 12/11/171942: Urine Opiates Screen 372, Methadone Screen < 40, Barbiturate Screen < 60, Ur Phencyclidine Scrn < 6.00, Amphetamines Screen < 100, U Benzodiazepines Scrn < 85, Urine Cocaine Screen > 1000 H, Urine Cannabis Screen 69.80 H 12/11/17 1644: Anion Gap 10, Estimated GFR > 60, BUN/Creatinine Ratio 12.5, Glucose 120 H, Calcium 8.1 L, Total Bilirubin 0.4, AST 89 H, ALT 53 H, Alkaline Phosphatase 52, Troponin I 0.02, Total Protein 5.9 L, Albumin 3.4 L, Globulin 2.5, Albumin /Globulin Ratio 1.4, Total Beta HCG NEGATIVE, CBC w Diff MAN DIFF ORDERED, RBC 4.47, MCV 88.6, MCH 30.4, MCHC 34.3, RDW 13.1, MPV 6.8 L, Gran % 93.0 H, Lymphocytes % 4.3 L, Monocytes % 1.9, Eosinophils % 0.6, Basophils % 0.2, Absolute Granulocytes 15.3 H, Segmented Neutrophils 90 H, Band Neutrophils 5, Absolute Lymphocytes 0.7 L, Lymphocytes 2 L, Monocytes 2, Absolute Monocytes 0.3, Eosinophils 1, Absolute Eosinophils 0.1, Absolute Basophils 0, Platelet Estimate VERIFIED BY SMEAR, Normocytic RBCs VERIFIED, Normochromic RBCs VERIFIED , Fld Total RBCs Counted 100, Serum Alcohol < 10.0 12/11/17 1506: Total Beta HCG Cancelled Assessment/Plan CRCU Other Findings/Comments: I have personally seen and examined the patient and agree with the resident's assessment and plan as detailed above. Briefly, the patient is a 27-year-old female with past medical history significant for asthma. There is no history of intubations or admissions for asthma in the past. The patient was brought to the ED after being found unresponsive. She lives with her boyfriend and was in her apartment. She had episodes of vomiting prior to arrival in the ED. The patient was given Narcan which she quickly responded to however it was not sustained. The patient was started on a Narcan drip. Urine tox screen was positive for opiates, cocaine and marijuana. It was reported later that she had snorted both heroin and fentanyl together. The patient was further evaluated and found to have significant respiratory failure requiring high flow oxygen with an elevated white blood cell count. She CT scan demonstrated multiple infiltrates. She was admitted to the ICU on a Narcan drip, high flow oxygen, pancultured and being treated with broad-spectrum antibiotics. She is currently awake and alert. She reports feeling better overall. She denies withdrawal symptoms. She denies pain. She denies suicidal ideation or attempt. She has been placed with a one-to-one sitter. Impression: 1. Drug overdose, with cocaine, heroin and fentanyl. The patient's urine tox screen is also positive for cannabis. 2. Acute hypoxemic respiratory failure secondary to aspiration pneumonitis/ pneumonia. 3. History of asthma. Plan: * Continue CICU monitoring. * Continue Narcan drip. Maintain SAS at 4. Wean drip off once her level of consciousness improves. * [facility] evaluation for neb treatments as needed. * Attempt to wean high flow oxygen down, maintain saturations greater than 92%. * Follow-up cultures. * Continue IV Unasyn pending results. * Continue gentle IV fluid hydration. Will discontinue once the patient has adequate oral intake. * Advance to regular diet. * Social service and psychiatry consults. * Continue one-to-one sitter. * DVT prophylaxis at all times. * I discussed the plan of care with the housestaff. I asked them to contact me should the patient's condition change or should they have any questions. Consult Acknowledgment - Thank you for your consult request.
--- NOTE | 2017-12-12 11:26 | PN- Resident CRCU ---
Subjective HPI/CRCU Issues: . Objective Vital Signs & I&O Last 8 Hrs of Vitals and I&O: Intake & Output 12/12 1600 Intake Total 1700 Output Total 1500 Balance 200 Intake, IV 1100 Intake, Oral 600 Output, Urine 1500 Exam General Appearance: awake Impression/Plan Impression/Problem List Impression: . Problem List: 1. Seizure Pain Ratin Tomorrow's Labs & Rationales: .
[2017-12-12 16:00] VITALS: BP 124/58
[2017-12-12 23:00] VITALS: BP 112/52
[2017-12-13 05:53] LABS: ABSOLUTE BASOPHIL COUNT 0 /CUMM (0.0-0.2); ABSOLUTE EOSINOPHIL COUNT 0.3 /CUMM (0.0-0.7); ABSOLUTE GRANULOCYTE CT 6.1 /CUMM (1.4-6.5); ABSOLUTE LYMPH COUNT 1.4 /CUMM (1.2-3.4); ABSOLUTE MONOCYTE COUNT 0.5 /CUMM (0.10-0.60); BASOPHIL % 0.3 % (0.0-2.0); GRANULOCYTE % 73.4 % (42.2-75.2); HEMATOCRIT 33.3 % (37-47); MEAN CORPUSCULAR HGB CONC 33.9 G/DL (33.0-37.0); MEAN CORPUSCULAR VOLUME 88.5 FL (81.0-99.0); MEAN PLATELET VOLUME 7.1 FL (7.4-10.4); PLATELET COUNT 139 /CUMM (130-400); RBC DISTRIBUTION WIDTH 13.2 % (11.5-14.5); RED BLOOD CELL CT 3.76 /CUMM (4.20-5.40); WHITE BLOOD CELL COUNT 8.4 /CUMM (4.8-10.8)
[2017-12-13 08:00] VITALS: BP 126/86
--- NOTE | 2017-12-13 08:05 | PN- Resident CRCU ---
Subjective HPI/CRCU Issues: Heroin Overdose Aspiration Pneumonia Patient was seen and examined. Reports feeling much better. Offers no complaints. 24 Hour Events: No acute events overnight. Narcan drip was turned off yesterday morning. Objective Vital Signs & I&O Last 8 Hrs of Vitals and I&O: . Exam General Appearance: well developed/nourished, no apparent distress, alert, awake , comfortable Head: atraumatic, normal appearance Respiratory: normal breath sounds, chest non-tender Cardiovascular: regular rate/rhythm Gastrointestinal: soft, non-tender Extremities: no edema Cranial Nerves: normal hearing, normal speech Skin: intact, normal color, warm/dry Skin Temp/Moisture Exam: Warm/Dry Sepsis Skin Exam (color): Normal for Ethnicity Current Medications: Current Medications Sig/Dana Start time Last Medication Dose Route Stop Time Status Admin Acetaminophen 650 MG .STK-MED ONE 12/12 193 DC PO 12/12 193 Acetaminophen 650 MG Q6P PRN 12/11 1945 12/12 PO 1938 Albuterol Sulfate 3 ML EVERY 4 HRS/AWAKE 12/12 0800 12/13 INH 0847 Ampicillin Sodium/ 3,000 MG Q6H 12/11 2100 12/13 Sulbactam Sodium IV 0839 Sodium Chloride 100 ML Dextrose/Sodium 1,000 ML Q13H 12/11 2015 MT 12/11 Chloride IV 2141 Enoxaparin Sodium 40 MG DAILY 12/12 0900 12/12 SC 0831 Naloxone HCl 4 MG Q10H 12/12 0345 MT 12/12 Sodium Chloride 1,000 ML IV 0413 Nicotine 14 MG DAILY@1900 12/12 1900 12/12 TOP 1934 Ondansetron HCl 4 MG Q6P PRN 12/11 2045 AC IV Impression/Plan Impression/Problem List Impression: 27 yo F with PMH of asthma was brought to the ED after being found unresponsive likely secondary to heroin/fentanyl overdose. Assessment: 1. Acute Heroin Overdose 2. Aspiration Pneumonia 3. Cocaine Abuse 4. History of Asthma Plan: * Continue monitoring in the ICU for now. * Off Narcan drip * TRC/nebs as needed. Currently on 2L of O2. Will wean off as tolerated. * Blood and urine culture show no growth so far. Her white count has trended down. * Utox - positive for cocaine and cannabis. * Continue IV Unasyn 3g q6 for a total of 5 days. Today is day 3. * CT Chest 12/11 showed patchy consolidative and groundglass opacities present in a perihilar distribution more pronounced anteriorly within the upper lobes. Also showed noncardiogenic pulmonary edema primarily involving the same area. * IV Zofran prn for nausea * Diet: Regular * DVT Prophylaxis: SC Lovenox * Code Status: Full Code. Problem List: 1. Heroin overdose Pain Ratin Tomorrow's Labs & Rationales: CBC, ICU bundle Plan DVT/Prophylaxis: mechanical
--- NOTE | 2017-12-13 09:22 | PN- CRCU ---
Subjective HPI/Critical Care Issues: The patient is awake and alert. She reports feeling markedly improved. Her oxygenation has dramatically improved, noting that she is in the high 90s on room air. She is afebrile. Her vital signs are stable. She has an ongoing congestive cough however she denies any chest pain, nausea, vomiting, abdominal pain, fever or chills. There were no overnight events reported. She continues to be monitored by a one-to-one sitter. Objective Current Medications: Current Medications Sig/Dana Start time Last Medication Dose Route Stop Time Status Admin Acetaminophen 650 MG .STK-MED ONE 12/12 193 DC PO 12/12 193 Acetaminophen 650 MG Q6P PRN 12/11 1945 AC 12/12 PO 193 Albuterol Sulfate 3 ML EVERY 4 HRS/AWAKE 12/12 0800 12/13 INH 0847 Ampicillin Sodium/ 3,000 MG Q6H 12/11 2100 AC 12/13 Sulbactam Sodium IV 0839 Sodium Chloride 100 ML Dextrose/Sodium 1,000 ML Q13H 12/11 2014 DC 12/11 Chloride IV 2141 Enoxaparin Sodium 40 MG DAILY 12/12 0900 12/12 SC 0831 Magnesium Sulfate 1 GM Q2H 12/13 0915 UNVr Dextrose/Water 100 ML IV 12/13 1314 Naloxone HCl 4 MG Q10H 12/12 0345 DC 12/12 Sodium Chloride 1,000 ML IV 0413 Nicotine 14 MG DAILY@1900 12/12 1900 12/12 TOP 1934 Ondansetron HCl 4 MG Q6P PRN 12/11 2045 AC IV Potassium Phosphate 15 mMol ONE ONE 12/13 0915 UNVr Sodium Chloride 250 ML IV 12/13 1319 Vital Signs & I&O Last 24 Hrs of Vitals and I&O: Vital Signs Date Time Temp Pulse Resp B/P B/P Pulse O2 O2 Flow FiO2 Mean Ox Delivery Rate 12/13 0400 100 Nasal 2.0L Cannula 12/13 0000 99 Nasal 2.0L Cannula 12/12 2300 97.4 84 20 112/52 99 Nasal 2.0L Cannula 12/12 2000 99 Nasal 2.0L Cannula 12/12 1611 99 Nasal 4.0L Cannula 12/12 1600 99.0 86 22 124/58 98 Nasal 4.0L Cannula 12/12 1200 96 Nasal 2.0L Cannula 12/12 1145 100 Nasal 40% Cannula 12/12 0920 100 Nasal 60% Cannula Intake & Output 12/13 1600 12/13 0800 12/13 0000 Intake Total 160 1160 Output Total Balance 160 1160 Intake, IV 110 200 Intake, Oral 50 960 Physical Exam General Appearance: Awake, alert, oriented, follows commands, moving all extremities independently, no distress Head: atraumatic, normal appearance Eyes: Bilateral: normal appearance, EOMI. Neck: normal inspection, supple Respiratory: no respiratory distress, scattered rhonchi Cardiovascular: regular rate/rhythm Gastrointestinal: normal bowel sounds, soft, non-tender, no organomegaly Neurologic/Psych: no motor/sensory deficits, oriented x 3, depressed affect, Pt is drowsy - awake at moments and willing to talk about what she remembers. No focal neurological deficits observed. Cranial Nerves: normal hearing, normal speech Skin: intact, normal color Results Last 24 Hrs of Lab Results: Laboratory Tests 12/13/17 0445: Anion Gap 9, Estimated GFR > 60, Glucose 106 H, Calcium 8.3 L, Phosphorus 2.4 L, Magnesium 1.6, Total Bilirubin 0.4, AST 20, ALT 32, Albumin 3.0 L, CBC w Diff NO MAN DIFF REQ, RBC 3.76 L, MCV 88.5, MCH 30.0, MCHC 33.9, RDW 13.2, MPV 7.1 L, Gran % 73.4, Lymphocytes % 17.0 L, Monocytes % 6.3, Eosinophils % 3.0, Basophils % 0.3, Absolute Granulocytes 6.1, Absolute Lymphocytes 1.4, Absolute Monocytes 0.5, Absolute Eosinophils 0.3, Absolute Basophils 0 12/12/17 1158: Troponin I 0.01 Last 24 Hrs of Micro Results: All cultures are negative to date. Impression/Plan Impression/Plan Impression/Plan: 1. Drug overdose, with cocaine, heroin and fentanyl. The patient's urine tox screen is also positive for cannabis. 2. Acute hypoxemic respiratory failure secondary to aspiration pneumonitis/ pneumonia, significantly improved. 3. History of asthma, without evidence of bronchospasm on today's examination. Recommendations: * Monitor for signs of opiate withdrawal. * Continue to monitor off any pain medications. * Check ambulatory oxygen saturations. * Continue to monitor culture data. * Continue IV Unasyn pending results. * Regular diet. * Discussed discontinuation of one-to-one sitter with psychiatry. * DVT prophylaxis at all times. * Continue all supportive care. * Downgrade to the general medical floor. * I discussed the plan of care with the housestaff. I asked them to contact me should the patient's condition change or should they have any questions.
--- NOTE | 2017-12-13 12:24 | Transfer of Care Summary ---
Hospital Course Course Hospital Course: This is a 27 yo F with PMH of asthma who was brought to the ED after being found unresponsive. The patient was reported to have vomitted prior to coming to ER. On arrival to the ED she was given a dose of Narcan to which she briefly responded. While in the emergency department she received two more doses of Narcan without sustained effect and thus she was subsequently started on a Narcan drip. In between symptoms of arousal and lethargy the patient needed to be bagged a few times and continued to vomit blood tinged vomitus. During a brief period where she was awake, she reported to have snorted 3 bags of heroin earlier in the day. Vitals on arrival to the ED; temp of 98.6, Pulse 99, RR 30 and BP of 154/106. Labs showed white count of 16.4 with 93% granulocytes, H&H of 13.6/39, Platelets of 215. Serum chemistries showed Na 137, K 4.4, BUN 10, Cr 0.8, AST 89, ALT 53, serum alcohol < 10. Issues addressed: 1. Acute Heroin Overdose Patient was continued on IV Narcan drip in the ICU. Her Utox was negative for opiates but was positive for cocaine and cannabis. As her mentation improved, she was slowly weaned off the Narcan drip. 2. Aspiration Pneumonia She had a white count on admission which has since then resolved. With history of vomiting, there was a high concern for aspiration and hence she was started on IV Unasyn 3g q6. Blood and urine cultures were obtained which show no growth so far. Today is day 3. It can be continued for a total of 5 days. She was noticed to have respiratory distress since admission, requiring oxygen via high flow at 60-70%. CT Chest 12/11 showed patchy consolidative and groundglass opacities present in a perihilar distribution more pronounced anteriorly within the upper lobes. Also showed noncardiogenic pulmonary edema primarily involving the same area. Her breathing has improved since admission. She is currently saturating well on room air. Assessment/Plan: . albuterol treatment in the ER. * Obtain blood and urine culture * Utox - positive for cocaine and cannabis. * Start IV Unasyn 3g q6 to cover for possible aspiration pneumonia. She does have a white count but this could be reactive. * Await CT Chest results.
[2017-12-13 15:04] VITALS: BP 128/70
[2017-12-13 21:24] VITALS: BP 138/84
[2017-12-14 06:32] VITALS: BP 125/73
--- NOTE | 2017-12-14 08:14 | PN- Housestaff ---
See Addendum Subjective Follow-up For: Heroin overdose Subjective: Patient seen and examined at bedside, boyfriend and rooms, no acute events overnight afebrile. Patient denies cravings, irritation, agitation, emotional instability, suicidal ideation, hallucinations (auditory visual), fever, abdominal pain, diarrhea, fever, night sweats, chills Review of Systems Constitutional: Reports: see HPI. Objective Last 24 Hrs of Vital Signs/I&O Vital Signs Date Time Temp Pulse Resp B/P B/P Pulse O2 O2 Flow FiO2 Mean Ox Delivery Rate 12/14 0632 98.3 84 20 125/73 95 Room Air 12/13 2124 99.0 80 16 138/84 96 Room Air 12/13 1925 99 Room Air 12/13 1504 98.3 84 20 128/70 97 Room Air 12/13 0847 94 Room Air Intake & Output 12/14 1600 12/14 0800 12/14 0000 Intake Total 120 520 Output Total Balance 120 520 Intake, IV 120 Intake, Oral 120 400 Physical Exam General Appearance: Alert, Oriented X3, Cooperative Skin: No Rashes HEENT: Atraumatic, EOMI Neck: Supple, No LAD Cardiovascular: Regular Rate, Normal S1, Normal S2 Lungs: Clear to Auscultation, Normal Air Movement Abdomen: Normal Bowel Sounds, Soft, No Tenderness Neurological: Normal Speech Extremities: No Cyanosis, No Edema, Normal Pulses Vascular: Normal Pulses, Pulses Symmetrical Assessment/Plan Assessment: 27 yo F with PMH of asthma was brought to the ED by a friend for unresponsiveness. She was given a dose of Narcan to which she responded but became unresponsive again. She received 2 more doses of Narcan after which she was subsequently started on a Narcan drip. Patient was transferred from ICU to general medicine floor on 12/13/17. Problem List: 1. Drug Overdose 2. Aspiration Pneumonia #Drug Overdose: Utox positive for Cocaine, Cannabis, patient required Narcan multiple time, patient was placed on ativan drip in ICU. Plan: - Social work consult #Aspiration Pneumonia- Elevated WBC w/ Left shift on admission Plan: -start augementin for 2 days, completed Unasyn for 3 days. Patient will be discharged today, patient was seen by social science instructor Coleen who had advised patient of her rehab option. Patient states that she is interestd in rehab, and has court mandated 30 days. To follow up w/ PCP Dr. Matt. Discharging patient with Augmentin 875mg BID for 2 days Problem List: 1. Overdose Pain Ratin Pain Location: n/a Pain Goal: Remain pain free Pain Plan: n/a Tomorrow's Labs & Rationales: n/a
[2017-12-14] MEDS ORDERED: AMOX-CLAV 875-1 EACH PO (10:48)
--- NOTE | 2017-12-14 11:02 | Patient Discharge Instructions ---
Discharge Instructions General Discharge Information You were seen/treated for: Heroine Overdose You had these procedures: n/a Special Instructions: Please do not take recreational drugs. Follow up w/ PCP Diet Continue normal diet: Yes Recommended Diet: Regular Activity Full Activity/No Limits: Yes Activity Self Limited: No Acute Coronary Syndrome Inclusion Criteria At DC or during hospital stay patient has or had the following: ACS DIAGNOSIS No Discharge Core Measures Meds if any: Prescribed or Continued at Discharge Meds if any: NOT Prescribed or Continued at Discharge Congestive Heart Failure Inclusion Criteria At DC or during hospital stay patient has or had the following: CHF DIAGNOSIS No Discharge Core Measures Meds if any: Prescribed or Continued at Discharge Meds if any: NOT Prescribed or Continued at Discharge Cerebrovascular accident Inclusion Criteria At DC or during hospital stay patient has or had the following: CVA/TIA Diagnosis No Discharge Core Measures Meds if any: Prescribed or Continued at Discharge Meds if any: NOT Prescribed or Continued at Discharge Venous thromboembolism Inclusion Criteria VTE Diagnosis No VTE Type NONE VTE Confirmed by (Test) NONE Discharge Core Measures - Per Current guidelines, there needs to be overlap - treatment for the first 5 days of Warfarin therapy. - If discharged on Warfarin prior to 5 days of - overlap therapy, the patient will need to be - assessed for post discharge needs including - *Post discharge parental anticoagulation - *Warfarin and/or parental anticoagulation education - *Follow up date to check INR post discharge At least 5 days overlap therapy as Inpatient No Meds if any: Prescribed or Continued at Discharge Note: Overlap Therapy is Warfarin and Anticoagulant Meds if any: NOT Prescribed or Continued at Discharge
--- NOTE | 2017-12-14 21:28 | Discharge Summary ---
Visit Information Visit Dates Admission Date: 12/11/17 Discharge Date: 12/14/17 Hospital Course Course Attending Physician: Akash Carson MD Primary Care Physician: Dr. Vernell Matt Hospital Course: 27 yo F with PMH of asthma was brought to the ED by a friend for unresponsiveness. The patient was reportedly found to be unresponsive and diaphoretic earlier in the car. She was given an inital dose of Narcan in ED to which she responded but became unresponsive again. She received 2 more doses of Narcan after which she was subsequently started on a Narcan drip. The patient was noticed to cough bloody/frothy sputum in the ER. She reports to have snorted 3 bags of heroin earlier today. She has been using 2 bags of heroin every day for the past year. Patient was admitted from ED into ICU for Acute Heroin Overdose, and aspiration pneumonia. ED Vitals: Temp 98.6, HR 99, RR 30, BP 154/106, O2 sat 74% on NC ED Labs: WBC 16.4, Abs Gran. 14.3, Utox positive for Cocaine and Cannabis, ED Imaging: CXR-Noncardiogenic pulmonary edema, primarily involving the anteiror upper lobes CT Chest- Patchy consolidation and grandglass opacities present in a perihilar distribution more pronounced anteriorly within the upper lobes Problem List: Acute Heroin Overdose Aspiration Pneumonia Cocaine overdose H/o Asthma ED Course: Received IV Narcan 0.4mg x 3, 1L of NS, nebs with albuterol and started on IV Narcan drip. Patient was transferred to ICU ICU Course: Narcan drip was discontinued on December 12, as patient became displayed an improving state of consciousness, then was weaned down from 4.0 L O2 to 2.0 L of O2. Patinet was started on Unasyn total of 5 days for suspected aspiration pneumonia as a compliction from opioid overdose. Patient was transferred to medical floor on 12/14/17 GM course: Patient had no symptoms of withdrawal. Social consult was placed, information regarding rehab programs was provided to patient. Patient was discharged home with Augmentin 875 mg for 2 days to complete 5 day course of ABx , to follow up with Dr. Matt in clinic. Patient has court mandated 30-day residential drug treatment plan. Allergies: Coded Allergies: diphenhydramine (UNKNOWN 09/07/17) Disposition Summary Disposition Principal Diagnosis: Heroin Overdose Additional Diagnosis: Aspiration Pneumoia Cocaine OVerdose Asthma Discharge Disposition: home or self care Discharge Instructions General Discharge Information Code Status: Full Code Patient's Diet: Regular Patient's Activity: As tolerated Follow-Up Instructions/Appts: Complete Abx as directed. Follow up with PCP. Complete rehab. Medications at Discharge Discharge Medications: Stop taking the following medications: Albuterol Sulfate (Proair Hfa) 90 MCG HFA.AER.AD Inhale through mouth EVERY 4-6 HOURS NEEDED as needed for copugh/wheezing Qty = 1 Start taking the following new medications: Amoxicillin/Clavulanate Potass (Amox-Clav 875-125 MG Tablet) 875 MG-125 MG TABLET 875 Milligram ORAL EVERY 12 HOURS Qty = 4 No Refills Comments: Last Taken: 12/14/17 Time: 0902 Copies To: Tamela KOCH,Tamela Sosa MD Review Statement Documenting Attending: Akash Carson MD Other Findings: The patient was seen and agree with the above summary and plan of care upon discharge.
== END 2017-12-14 17:14 | DRG 816 ==
LOC: ERH 14:59 → 2NB 18:23 → ERHI 18:23 → ENRESERV 19:57 → ENTRNSPT 20:33 → EDTRNSPTSTS 20:44 → CRI 20:54 → CMPTRNSPT 21:06 → ENTRNSPT 12-13 11:22 → EDTRNSPT 12-13 11:30 → EDTRNSPTSTS 12-13 11:30 → 2NB 12-13 11:42 → CMPTRNSPT 12-13 11:45 → 2NB 12-14 08:37 → ENPENDDIS 12-14 12:09 → 2NB 12-14 17:14
PROVIDERS: Internal Medicine; Physician Assistant
DX: T40.1X1A Poisoning by heroin, accidental (unintentional), initial encounter (principal); J96.01 Acute respiratory failure with hypoxia; J69.0 Pneumonitis due to inhalation of food and vomit; F14.10 Cocaine abuse, uncomplicated; J45.909 Unspecified asthma, uncomplicated; Z79.51 Long term (current) use of inhaled steroids
CPT/HCPCS: 2NBP; CCU; 36415; 71045; 80307; 82436; 87040; 87086; 93005; 93010; 96374; 96375; 96376; 99291; G0480; J1650; J2310; J2405; J7042